=== PATIENT | male | born 1990 | race Caucasian/White ===

== ENCOUNTER 2022-11-06 08:10 | Day surgery (SDC) | payer OTHER ==
[2022-11-05 08:52] VITALS: BMI 32.5
[2022-11-06] MEDS ORDERED: SUGAMMADEX SODIUM 200 MG/2 ML VIAL ONE ×2 (08:59→10:49)
[2022-11-06] MEDS ORDERED: Fentanyl 250 MCG/5 ML VIAL ONE (08:59)
[2022-11-06] MEDS ORDERED: Midazolam HCl 2 mg/2 ml Vial ONE (09:00)
[2022-11-06] MEDS ORDERED: Oxymetazoline HCl 0.05% (30 ML BOT) ONE ×2 (09:20→09:47)
[2022-11-06] MEDS ORDERED: EPINEPHrine 1 MG/ML AMP ONE (09:47)
[2022-11-06] MEDS ORDERED: Lidocaine 1% (PF) 30 ML VIAL ONE (09:47)
[2022-11-06] MEDS ORDERED: Lidocaine 1% PF 5 ML VIAL ONE ×2 (11:02)
[2022-11-06] MEDS ORDERED: PROPOFOL 200 MG/20 ML VIAL ONE (11:02)
[2022-11-06] MEDS ORDERED: Ondansetron PF 4 MG/2 ML Vial ONE (11:02)
[2022-11-06] MEDS ORDERED: Rocuronium Bromide 10 MG/ML (10ML VIAL) ONE (11:02)
[2022-11-06] MEDS ORDERED: Triamcinolone 40 MG/ML VIAL ONE (11:48)
[2022-11-06] MEDS ORDERED: Meperidine HCl/PF 25 MG/ML VIAL ONE (12:13)
[2022-11-06] MEDS ORDERED: fentaNYL 50 mcg/mL 1 mL Vial ONE (12:49)
[2022-11-06] MEDS ORDERED: HYDROcodone/Acetaminophen 5/325 mg Tablet ONE (13:21)
== END 2022-11-06 14:45 | disposition home or self-care (01) ==
LOC: SDC 08:10
PROVIDERS: ATTEND Specialist
PROC: 09BU8ZZ Excision of Right Ethmoid Sinus, Via Natural or Artificial Opening Endoscopic (ICD-10-PCS; principal; 2022-11-06)
PROC: 099X8ZZ Drainage of Left Sphenoid Sinus, Via Natural or Artificial Opening Endoscopic (ICD-10-PCS; principal; 2022-11-06)
PROC: 099R8ZZ Drainage of Left Maxillary Sinus, Via Natural or Artificial Opening Endoscopic (ICD-10-PCS; principal; 2022-11-06)
PROC: 09BV8ZZ Excision of Left Ethmoid Sinus, Via Natural or Artificial Opening Endoscopic (ICD-10-PCS; principal; 2022-11-06)
PROC: 099Q8ZZ Drainage of Right Maxillary Sinus, Via Natural or Artificial Opening Endoscopic (ICD-10-PCS; principal; 2022-11-06)
PROC: 099S8ZZ Drainage of Right Frontal Sinus, Via Natural or Artificial Opening Endoscopic (ICD-10-PCS; principal; 2022-11-06)
PROC: 099W8ZZ Drainage of Right Sphenoid Sinus, Via Natural or Artificial Opening Endoscopic (ICD-10-PCS; principal; 2022-11-06)
DX: J34.3 Hypertrophy of nasal turbinates (principal); J32.4 Chronic pansinusitis; J30.1 Allergic rhinitis due to pollen; J30.81 Allergic rhinitis due to animal (cat) (dog) hair and dander; J30.89 Other allergic rhinitis; F41.8 Other specified anxiety disorders; Z79.899 Other long term (current) drug therapy; Z90.89 Acquired absence of other organs; Z88.0 Allergy status to penicillin; Z88.1 Allergy status to other antibiotic agents
CPT/HCPCS: J0171; J2001; J2175; J2250; J2405; J2704; J3010; J3301

== ENCOUNTER 2023-04-02 13:02 | Emergency (ER) | payer OTHER ==
[2023-04-02] MEDS ORDERED: Famotidine/PF 20 mg/2ml Vial ONE ×2 (13:41→13:43)
[2023-04-02 13:58] LABS: #Monocytes 0.2 thou/uL (0.11-0.59); #Neutrophils 4.8 thou/uL (1.40-6.50); %Eosinophils 0.3 % (0.0-10.0); %Lymphocytes 16.9 % (21.0-51.0); %Monocytes 3.9 % (0.0-10.0); %Neutrophils 78.6 % (42.0-75.0); Hematocrit 39.9 % (42.0-52.0); Hemoglobin 13.6 g/dL (14.0-18.0); Mean Corpuscular HGB CONC 34.1 g/dL (32.0-36.0); Mean Corpuscular Hemoglobin 30.9 pg (27.0-31.0); Mean Corpuscular Volume 90.7 fl (78.0-98.0); Mean Platelet Volume 11.4 fL (7.4-10.4); Platelet Count 148 10x3/uL (130-400); RBC Distribution Width 12.5 % (11.5-14.5); White Blood Cell (WBC) Count 6.1 10x3/uL (4.8-10.8)
[2023-04-02 14:16] LABS: Amphetamine Not Detected (NotDetected); Barbiturates Screen Not Detected (NotDetected); Benzodiazepine Screen Not Detected (NotDetected); Cocaine Metabolite Screen Not Detected (NotDetected); Methadone Not Detected (NotDetected); Methamphetamine Not Detected (NotDetected); Opiate Screen Not Detected (NotDetected); Oxycodone Screen Not Detected (NotDetected); Phencyclidine (PCP) Not Detected (NotDetected); THC/Cannabinoid Screen Not Detected (NotDetected); Tricyclic Screen Not Detected (NotDetected)
[2023-04-02 14:20] LABS: ALT (SGPT) 34 U/L (8-55); AST (SGOT) 25 U/L (5-34); Albumin 4.2 g/dL (3.5-5.0); Alkaline Phosphatase 57 U/L (40-110); Anion Gap 10 mmol/L (10-20); BUN (Urea Nitrogen) 12 mg/dL (8.9-20.6); Bilirubin, Total 0.9 mg/dL (0.2-1.2); Calc. Creatinine Clearance 0 mL/min (70-130); Calcium 8.4 mg/dL (7.8-10.44); Carbon Dioxide 26 mmol/L (22-29); Chloride 106 mmol/L (98-107); Estimated GFR 109; Globulin 2.4 g/dL (2.4-3.5); Glucose 196 mg/dL (70-105); Magnesium 1.9 mg/dL (1.6-2.6); Potassium 3.5 mmol/L (3.5-5.1); Protein, Total 6.6 g/dL (6.0-8.3); Sodium 138 mmol/L (136-145)
[2023-04-02 14:23] LABS: Troponin I Less than 0.010 ng/mL (< 0.028)
== END 2023-04-02 15:21 | disposition home or self-care (01) ==
LOC: ERS 13:02
DX: R55 Syncope and collapse (principal); T88.6XXA Anaphylactic reaction due to adverse effect of correct drug or medicament properly administered, initial encounter; J45.909 Unspecified asthma, uncomplicated; F17.290 Nicotine dependence, other tobacco product, uncomplicated; Z79.899 Other long term (current) drug therapy
CPT/HCPCS: 36415; 71045; 80053; 80306; 83735; 84443; 84484; 85025; 85379; 93005; 96374; S0028

== ENCOUNTER 2023-08-26 09:29 | Day surgery (SDC) | payer OTHER ==
[2023-08-25 13:45] VITALS: BMI 31.7
[2023-08-26] MEDS ORDERED: Lidocaine 1% PF 5 ML VIAL ONE (12:17)
[2023-08-26] MEDS ORDERED: PROPOFOL 20 ML ONE (12:17)
[2023-08-26] MEDS ORDERED: fentaNYL PF 100 MCG/2 ML SYRINGE ONE (12:35)
[2023-08-26] MEDS ORDERED: Oxymetazoline HCl 0.05% (30 ML BOT) ONE ×2 (12:39→12:41)
[2023-08-26] MEDS ORDERED: Lidocaine 1% (PF) 30 ML VIAL ONE (12:41)
[2023-08-26] MEDS ORDERED: EPINEPHrine 1 MG/ML VIAL ONE (12:41)
[2023-08-26] MEDS ORDERED: Rocuronium Bromide 10 MG/ML (10ML VIAL) ONE (13:15)
[2023-08-26] MEDS ORDERED: Dexamethasone 20 MG/5 ML VIAL ONE (13:21)
[2023-08-26] MEDS ORDERED: Ondansetron PF 4 MG/2 ML Vial ONE (13:38)
[2023-08-26] MEDS ORDERED: SUGAMMADEX SODIUM 200 MG/2 ML VIAL ONE (13:40)
[2023-08-26] MEDS ORDERED: fentaNYL 50 mcg/mL 1 mL Vial ONE (14:45)
== END 2023-08-26 16:20 | disposition home or self-care (01) ==
LOC: SDC 09:29
PROVIDERS: ATTEND Otolaryngology Plastic Surgery within the Head & Neck
PROC: 09TS8ZZ Resection of Right Frontal Sinus, Via Natural or Artificial Opening Endoscopic (ICD-10-PCS; principal; 2023-08-26)
PROC: 09TT8ZZ Resection of Left Frontal Sinus, Via Natural or Artificial Opening Endoscopic (ICD-10-PCS; principal; 2023-08-26)
PROC: 09TU8ZZ Resection of Right Ethmoid Sinus, Via Natural or Artificial Opening Endoscopic (ICD-10-PCS; principal; 2023-08-26)
DX: J32.8 Other chronic sinusitis (principal); J33.9 Nasal polyp, unspecified; J45.909 Unspecified asthma, uncomplicated; F32.A Depression, unspecified; F41.9 Anxiety disorder, unspecified; J34.9 Unspecified disorder of nose and nasal sinuses; J01.91 Acute recurrent sinusitis, unspecified; Z90.89 Acquired absence of other organs; Z98.890 Other specified postprocedural states; Z88.1 Allergy status to other antibiotic agents; Z88.0 Allergy status to penicillin; Z91.011 Allergy to milk products
CPT/HCPCS: J0171; J1100; J2001; J2405; J2704; J3010